=== PATIENT | male | born 1985 | race Caucasian/White ===

== ENCOUNTER 2017-03-26 23:41 | Emergency (ER) | payer SELFPAY ==
[~2017-03-26] VITALS: Ht 177.8 cm; Wt 65.0 kg
[2017-03-27] VITALS: BP 146/99
[2017-03-27] MEDS ORDERED: LORazepam 1MG TABLET PO ONE (00:30)
== END 2017-03-27 01:30 | disposition home or self-care (01) ==
LOC: ED 03-27 01:12 → MERGE 03-27 01:12 → ED 03-27 01:30
DX: F10.120 Alcohol abuse with intoxication, uncomplicated (principal); F17.200 Nicotine dependence, unspecified, uncomplicated
CPT/HCPCS: 99283

== ENCOUNTER 2017-03-27 14:48 | Emergency (ER) | payer SELFPAY ==
[2017-03-27 15:15] VITALS: BP 129/92
[2017-03-27] MEDS ORDERED: SODIUM CHLORIDE 0.9% 1,000 ML IV ONE (15:32)
[2017-03-27] MEDS ORDERED: MAALOX/HYOSCYAMINE/LIDOCAINE 45 ML BTL ONE (15:36)
[2017-03-27] MEDS ORDERED: MAALOX/HYOSCYAMINE/LIDOCAINE 45 ML BTL PO ONE (16:00)
[2017-03-27] MEDS ORDERED: SODIUM CHLORIDE 0.9% 1,000ML IVBOLUS ONE (16:00)
[2017-03-27] MEDS ORDERED: SODIUM CHLORIDE FLUSH 10ML SYR IVF ONE (16:00)
[2017-03-27] MEDS ORDERED: PLEASE ENTER HEIGHT AND WEIGHT MC SCH (16:00)
[2017-03-27 16:03] LABS: ASPARTATE AMINO TRANSFERASE 68 U/L (15-37); BLOOD UREA NITROGEN 14 mg/dL (7-18)
== END 2017-03-27 16:40 | disposition left against medical advice (07) ==
LOC: ED 16:34
DX: R10.13 Epigastric pain (principal); F10.10 Alcohol abuse, uncomplicated; Z59.0 Homelessness
CPT/HCPCS: 36415; 80053; 83690; 85025; 99284

== ENCOUNTER 2017-09-23 20:28 | Emergency (ER) | payer SELFPAY ==
[~2017-09-23] VITALS: Ht 185.4 cm; Wt 92.6 kg
[2017-09-23 20:51] VITALS: BP 126/85
[2017-09-23] MEDS ORDERED: LORazepam 1MG TABLET ONE (20:59)
[2017-09-23] MEDS ORDERED: LORazepam 1MG TABLET PO ONE (21:00)
== END 2017-09-23 21:45 | disposition home or self-care (01) ==
LOC: ED 21:44
DX: F41.1 Generalized anxiety disorder (principal); F20.9 Schizophrenia, unspecified; F17.200 Nicotine dependence, unspecified, uncomplicated
CPT/HCPCS: 82962; 99284

== ENCOUNTER 2017-11-05 21:16 | Emergency (ER) | payer SELFPAY ==
[2017-11-05 21:26] VITALS: BP 120/81
== END 2017-11-05 22:59 | disposition left against medical advice (07) ==
LOC: ED 21:20
DX: R10.9 Unspecified abdominal pain (principal); Z53.21 Procedure and treatment not carried out due to patient leaving prior to being seen by health care provider

== ENCOUNTER 2017-12-03 19:57 | Emergency (ER) | payer SELFPAY ==
[~2017-12-03] VITALS: Ht 180.3 cm; Wt 62.0 kg
[2017-12-03 19:58] VITALS: BP 122/80
[2017-12-03] MEDS ORDERED: LORazepam 1MG TABLET ONE (20:47)
[2017-12-03] MEDS ORDERED: LORazepam 1MG TABLET PO ONE (21:00)
== END 2017-12-03 21:04 | disposition home or self-care (01) ==
LOC: ED 21:00
DX: F41.1 Generalized anxiety disorder (principal); F20.9 Schizophrenia, unspecified; Z59.0 Homelessness; Z72.89 Other problems related to lifestyle; Z91.14 Patient's other noncompliance with medication regimen; Z60.9 Problem related to social environment, unspecified
CPT/HCPCS: 93005; 99284

== ENCOUNTER 2018-01-03 21:41 | Emergency (ER) | payer SELFPAY ==
[~2018-01-03] VITALS: Ht 175.3 cm; Wt 60.4 kg
[2018-01-03 21:45] VITALS: BP 122/82
== END 2018-01-03 22:30 | disposition home or self-care (01) ==
LOC: ED 22:20
DX: F41.1 Generalized anxiety disorder (principal)
CPT/HCPCS: 99284

== ENCOUNTER 2018-05-17 01:11 | Emergency (ER) | payer OTHER ==
[~2018-05-17] VITALS: Ht 180.3 cm; Wt 65.0 kg
[2018-05-17 01:13] VITALS: BP 126/81
== END 2018-05-17 01:23 | disposition left against medical advice (07) ==
LOC: ED 01:20
DX: J00 Acute nasopharyngitis [common cold] (principal); Z53.21 Procedure and treatment not carried out due to patient leaving prior to being seen by health care provider

== ENCOUNTER 2018-05-30 23:34 | Emergency (ER) | payer OTHER ==
[~2018-05-30] VITALS: Ht 172.7 cm; Wt 65.0 kg
[2018-05-30 23:38] VITALS: BP 122/90
== END 2018-05-31 00:18 | disposition left against medical advice (07) ==
LOC: ED 23:59
DX: F41.1 Generalized anxiety disorder (principal); F15.129 Other stimulant abuse with intoxication, unspecified; Z72.89 Other problems related to lifestyle; Z91.14 Patient's other noncompliance with medication regimen; Z60.9 Problem related to social environment, unspecified; F20.9 Schizophrenia, unspecified
CPT/HCPCS: 99284